=== PATIENT | male | born 1945 | race Caucasian/White ===

== ENCOUNTER → 2018-02-18 | Outpatient (CLI) | payer MEDICARE, BC ==
--- NOTE | 2018-02-18 12:37 | US ---
EXAMINATION TYPE: US venous doppler duplex LE RT DATE OF EXAM: 02/18/2018 12:15 PM COMPARISON: NONE CLINICAL HISTORY: M25.561 PAIN IN RT KNEE,S80.01XD CONTUSION RT KNEE. Rt knee surgery February 08, on [place] rfarin, no h/o dvt, calf pain SIDE PERFORMED: Right TECHNIQUE: The lower extremity deep venous system is examined utilizing real time linear array sonog patricia with graded compression, doppler sonography and color-flow sonography. VESSELS IMAGED: External Iliac Vein (EIV) Common Femoral Vein Deep Femoral Vein Greater Saphenous Vein * Femoral Vein Popliteal Vein Small Saphenous Vein * Proximal Calf Veins (* superficial vessels) Grayscale, color doppler, spectral doppler imaging performed of the deep veins of the right lower ext remity. There is normal flow, compressibility, vascular waveforms. Right Leg: Appears negative for DVT *office notified and was going to place findings in chart prior to patients 1:00 appt today IMPRESSION: No sonographic evidence of deep venous thrombosis within the right lower extremity.
== END | disposition home or self-care (01) ==
LOC: RADUSWWP 11:35
PROVIDERS: ATTEND Orthopaedic Surgery
DX: M79.661 Pain in right lower leg (principal); I80.9 Phlebitis and thrombophlebitis of unspecified site; M25.561 Pain in right knee; M25.461 Effusion, right knee; S80.01XD Contusion of right knee, subsequent encounter; M17.11 Unilateral primary osteoarthritis, right knee; S83.241D Other tear of medial meniscus, current injury, right knee, subsequent encounter